=== PATIENT | male | born 1980 | race Two or more races ===

== ENCOUNTER 2023-08-04 02:53 | Emergency (ER) | payer MEDICAID ==
[~2023-08-04] VITALS: Ht 172.7 cm; Wt 81.6 kg
[2023-08-04 03:39] VITALS: BP 131/68; TEMP 98.1
[2023-08-04] MEDS ORDERED: TETRAcaine 5 ML BOTTLE ONE (03:47)
[2023-08-04] MEDS ORDERED: FLUORESCEIN SODIUM OPHTH 1 EA STRIP ONE (03:47)
[2023-08-04] MEDS ORDERED: CIPR2.5D14 LEFTEYE (04:18)
[2023-08-04] MEDS: FLUORESCEIN SODIUM OPHTH 1 EA STRIP OP ONE (04:29)
[2023-08-04] MEDS: TETRAcaine 5 ML BOTTLE LEFTEYE ONE (04:29)
[2023-08-04 04:49] VITALS: O2SAT 99
== END 2023-08-04 04:52 | disposition home or self-care (01) ==
LOC: ER 02:53
DX: S05.02XA Injury of conjunctiva and corneal abrasion without foreign body, left eye, initial encounter (principal); X58.XXXA Exposure to other specified factors, initial encounter; Y93.89 Activity, other specified; Y92.89 Other specified places as the place of occurrence of the external cause; Y99.8 Other external cause status